=== PATIENT | female | born 1945 | race Caucasian/White ===

== ENCOUNTER 2024-02-25 07:20 | Inpatient (IN) | payer MEDICARE, OTHER ==
[~2024-02-25] VITALS: Ht 167.6 cm; Wt 102.8 kg
[2024-02-25] VITALS (7 sets, daily range): BP systolic 107–130; BP diastolic 57–64
[~2024-02-25 07:20] MED LIST: ADULT LOW DOSE81 MG PO; ALDACTONE100 MG PO; FUROSEMIDE20 MG PO; HYDROXYZINE HCL25 MG PO; METOPROLOL SUCC50 MG PO; OXYBUTYNIN CHLO15 MG PO; PRESERVISION A1 EAC3 PO; ROSUVASTATIN CA10 MG PO; VENTOLIN HFA18 GM INH; VITAMIN B121000 MCG PO
[2024-02-25 08:03] LABS: BASOPHILS 0.9 % (0-2); EOSINOPHILS 10.5 % (0-6); HEMATOCRIT 38.7 % (35.0-50.0); HEMOGLOBIN 12.7 g/dL (12.0-18.0); LYMPHOCYTES 14.5 % (24-44); MCH 29.3 (27-36); MCHC 32.9 g/dl (30-36); MCV 88.9 fl (81-99); MONOCYTES 10.4 % (0-12); NEUTROPHILS 63.7 % (39-80); PLATELET COUNT 227 K/uL (140-440); RBC 4.36 M/ul (4.3-5.7); RDW 14.2 (10.5-15.0)
[2024-02-25 08:11] LABS: BILIRUBIN, URINE NEGATIVE (negative); BLOOD/HGB, URINE NEGATIVE (Negative); KETONE, URINE NEGATIVE (Negative); LEUK ESTERASE, URINE SMALL (negative); NITRITE, URINE POSITIVE (negative)
[2024-02-25 08:14] LABS: ALBUMIN 3.2 g/dL (3.4-5.0); ALBUMIN/GLOBULIN RATIO 0.86 (1.1-2.4); ANION GAP 11.3 (7-21); BILIRUBIN, TOTAL 0.8 ng/dL (0.2-1.0); BUN/CREATININE RATIO 23.25 (6.0-28.6); CALCIUM 8.5 mg/dL (8.5-10.1); CREATININE, SERUM 1.29 mg/dL (0.55-1.02); POTASSIUM 4.3 mmol/L (3.5-5.1); PROTEIN, TOTAL 6.9 g/dL (6.4-8.2)
[2024-02-25 08:18] LABS: BACTERIA, URINE 3+ /hpf (negative); CASTS, URINE NONE SEEN \\lpf; COLLECTION TYPE, URINE CLEAN CATCH; CRYSTALS, URINE NONE SEEN (0-1+); RED BLOOD CELLS, URINE 0-1 /hpf (0-5); REFLEX CULTURE, URINE Yes (No); WHITE BLOOD CELLS, URINE 21-40 /HPF (0-5)
[2024-02-25] MEDS ORDERED: SODIUM CHLORIDE 0.9% 1,000 ML IV ONE (09:30)
[2024-02-25] MEDS ORDERED: CEFTRIAXONE/SODIUM CHLORIDE 1 GM/100 ML PIGGYBACK IV ONE (09:30)
[2024-02-25] MEDS ORDERED: HYDROCODON-ACE1 EA10 PO (10:44)
[2024-02-25] MEDS ORDERED: NITROGLYCERIN0.4 MG SL (10:44)
[2024-02-25] MEDS ORDERED: LOSARTAN POTASS25 MG PO (10:45)
[2024-02-25] MEDS ORDERED: SENNA8.6 MG PO (10:46)
[2024-02-25] MEDS ORDERED: HYDROmorphone HCL 1 MG/ML SYR IV ONE (11:00)
[2024-02-25] MEDS ORDERED: ENOXAPARIN SODIUM 40 MG/0.4 ML SYR SUB-Q SCH (12:43)
[2024-02-25] MEDS ORDERED: PANTOPRAZOLE SODIUM 40 MG/10 ML VIAL IV SCH (12:43)
[2024-02-25] MEDS ORDERED: ondansetron HCL 4 MG/2 ML VIAL IV PRN ×2 (12:45→14:30)
[2024-02-25] MEDS ORDERED: ACETAMINOPHEN 325 MG TAB PO PRN (12:45)
[2024-02-25] MEDS ORDERED: PROCHLORPERAZINE EDISYLATE 10 MG/2 ML VIAL IV PRN ×2 (12:45→14:30)
[2024-02-25] MEDS ORDERED: HYDROmorphone HCL 1 MG/ML SYR IV PRN ×2 (12:45→14:30)
[2024-02-25] MEDS ORDERED: HYDROCODONE/ACETA 5/325 TAB PO PRN (12:45)
[2024-02-25] MEDS ORDERED: ACETAMINOPHEN 650 MG SUPP PR PRN (12:45)
[2024-02-25] MEDS ORDERED: SPIRONOLACTONE50 MG PO (12:51)
--- NOTE | 2024-02-25 12:53 | NUR ---
CLEANER TOUCH UP WORKER ASSISTED PT WITH A SURGICAL WIPEDOWN. BED LINENS AND GOWN WERE STILL FRESH AND NOT EVEN AN HOUR OLD. PT TOOK OFF HER GLASS AND PUT THEM ON THE SIDE TABLE IN HER ROOM
--- NOTE | 2024-02-25 13:02 | NUR ---
New admit to the medical floor. Patient arrived to unit alert and oriented x4. Patient reports abdominal pain with intermittent nausea. Vital signs are stable, afebrile. Surgical consent obtained at this time with Dr. Jo present in room. Patient oriented to room and call light. Pt to go to surgery here shortly per Dr. Jo's report.
[2024-02-25] MEDS ORDERED: ROCURONIUM BROMIDE 50 MG/5 ML SYR ONE (13:04)
[2024-02-25] MEDS ORDERED: ACETAMINOPHEN 1,000 MG/100 ML VIAL ONE (13:04)
[2024-02-25] MEDS ORDERED: LIDOCAINE HCL 2% 20 MG/ML VIAL INJ ONE (13:04)
[2024-02-25] MEDS ORDERED: SUCCINYLCHOLINE IN 0.9% NACL 200 MG/10 ML SYRINGE ONE (13:04)
[2024-02-25] MEDS ORDERED: ondansetron HCL 4 MG/2 ML VIAL ONE (13:04)
[2024-02-25] MEDS ORDERED: fentaNYL citrate 100 MCG/2 ML VIAL ONE (13:04)
[2024-02-25] MEDS ORDERED: SUGAMMADEX SODIUM 200 MG/2 ML ML ONE (13:04)
[2024-02-25] MEDS ORDERED: LIDOCAINE HCL 2% 5 ML SDV ONE (13:04)
[2024-02-25] MEDS ORDERED: Ropivacaine HCl 0.5% 30 ML VIAL ONE (13:04)
[2024-02-25] MEDS ORDERED: propofoL 200 MG/20 ML VIAL ONE (13:04)
[2024-02-25] MEDS ORDERED: DEXAMETHASONE SOD PHOS 4 MG/ML VIAL ONE (13:04)
[2024-02-25] MEDS ORDERED: SODIUM CHLORIDE 0.9% 20 ML IV ONE (13:04)
[2024-02-25] MEDS ORDERED: LIDOCAINE 1% W/ EPI 1:200,000 30 ML SDV ONE (13:36)
[2024-02-25] MEDS ORDERED: BUPIVACAINE HCL 0.25% 50 ML MDV ONE (13:36)
[2024-02-25] MEDS ORDERED: NALOXONE HCL 0.4 MG SYR IV PRN (14:30)
[2024-02-25] MEDS ORDERED: droPERidol 5 MG/2 ML VIAL IV PRN (14:30)
[2024-02-25] MEDS ORDERED: fentaNYL citrate 50 MCG/ML SDV IV PRN (14:30)
[2024-02-25] MEDS ORDERED: IBLOOD GLUCOSE TEST STRIP 1 EA TEST VI PRN (14:30)
--- NOTE | 2024-02-25 15:34 | CONS ---
[facility] [address] [place], [place] [address] Signed DATE OF CONSULTATION: 02/25/2024 CHIEF COMPLAINT: Abdominal pain. HISTORY OF PRESENT ILLNESS: Priti is a 78-year-old female, who just flew back from [place] with her daughter about a day and half ago. She was noticing generalized abdominal pain and a bloating. She had some nausea. She came to emergency room for evaluation when she got back to [place], [place]. She is moderately diffusely distended and diffusely tympanitic. She has a mass in her right labia and right groin. White count was normal. Vital signs are unremarkable. She has urinary tract infection. CT scan of abdomen and pelvis shows her sigmoid colon in the right groin down toward the labia. I have been asked to see her as a general surgeon on-call. She has received her Rocephin and Flagyl. She tells me she will be seeing Dr. Littlejohn soon for her urinary incontinence. She also sees Dr. Frausto once a year after they discovered she had a heart murmur. PAST MEDICAL HISTORY: Urinary incontinence, moderate-sized hiatal hernia, cholelithiasis, tvxyqtwk-im-ippkqg pancreatic atrophy, a bladder diverticulum, osteopenia, bilateral hip osteoarthritis, bilateral lower extremity edema, obesity, hypertension, heart murmur, hypercholesterolemia, fibromyalgia, and COVID with resulting heart murmur and dyspnea on exertion. PAST SURGICAL HISTORY: Includes bilateral knee replacements, cervical fusion with bone graft, right carpal tunnel release and bilateral blepharoplasty. SOCIAL HISTORY: She does not smoke. She has a glass of wine each night. Dr. Sana Verma is her primary care provider. She prefers the [facility]. She has two daughters, one of which is Irma Phoenix at [phone], who is her [id number]. She is now a . Dr. Frausto is her line repairer. Dr. Russ Littlejohn will be her urologist in the weeks ahead. 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 FAMILY HISTORY: Dad had leukemia and heart valve issue. Mom had osteoarthritis. REVIEW OF SYSTEMS: She had 10 systems reviewed. She told me about the bilateral knee replacements. She said she probably had COVID a year or two ago and ended up with a heart murmur and some dyspnea on exertion resulting in her cardiac evaluation. Apparently, the cardiac evaluations been fine. She now goes once a year with the help of her diuretics, her Electronically Signed By: SKY CAMPBELL MD 02/25/24 1534 PATIENT NAME: PRITI VALLE CONSULTATION DATE OF : 43 REPORT #: [id number] PHYSICIAN: SKY CAMPBELL MD PCP: SANA VERMA MD REPORT IS CONFIDENTIAL AND NOT TO BE RELEASED WITHOUT AUTHORIZATION [facility] [address] [place], [place] [address] Signed lower extremity edema is markedly improved. She is also exercising on a daily basis. She told me she has urinary incontinence and will be seeing her urologist Dr. Littlejohn here in a few weeks. ALLERGIES: None. MEDICATIONS: Metoprolol, rosuvastatin, oxybutynin, Lasix, albuterol, spironolactone, aspirin, vitamin B12, hydroxyzine, [place], nitroglycerin, losartan, and senna. PHYSICAL EXAMINATION: VITAL SIGNS: Blood pressure is 131/79, heart rate 58, respiratory rate 22, temperature is 97.9. She is 96% on room air. She is 5 feet 6 inches, 103 kg with a body mass index of 36. GENERAL: Priti is a 78-year-old obese female, lying supine in her hospital bed. She is in no acute distress. LUNGS: Generally clear to auscultation bilaterally. HEART: Regular rate and rhythm and I cannot auscultate a murmur today. ABDOMEN: Obese, soft, but moderately distended and she has a tender mass in the right groin down into the right labia. It is not reducible. LABORATORY DATA: Her white blood cell count is 8.4, hemoglobin 12 neutrophils 63, BUN 30, creatinine 1.29. Urinalysis shows the nitrites, white blood cells and bacteria. The urine culture is pending. Liver function tests were fine. Albumin is 3.2. RADIOGRAPHIC STUDIES: CT scan report and images are reviewed. She has some mild right lower lobe bronchiectasis. Her sigmoid colon is in the right groin and down into the right labia. She has a thickened endometrium at 1.6 cm which is more than what she has had in the past and of course a pelvic ultrasounds been recommended. She also has some dilation at the left UPJ, which may represent a stricture. ASSESSMENT AND PLAN: Priti is a 78-year-old female who presents with an incarcerated tender right inguinal hernia containing her sigmoid colon. I reviewed the above findings with her. We have discussed the concept of inguinal hernia. We have reviewed an open primary suture repair versus mesh repair. She understands in the situations we may have to resect the bowel. There is risk including, but not limited to bleeding, infection, scarring, change in contour of the skin, damage to bowel, anastomotic leak, infection of mesh requiring removal, recurrent hernias and chronic pain. She understands this is not a simple hernia and she will be staying in the hospital as long as her clinical course dictates. She Electronically Signed By: SKY CAMPBELL MD 02/25/24 1534 PATIENT NAME: PRITI VALLE CONSULTATION DATE OF : 43 REPORT #: [id number] PHYSICIAN: SKY CAMPBELL MD PCP: SANA VERMA MD REPORT IS CONFIDENTIAL AND NOT TO BE RELEASED WITHOUT AUTHORIZATION [facility] [address] [place], [place] [address] Signed has expressed understanding, agrees above plan. We will be calling the crew shortly. MD POLLY Morales/KORIL /[id number] cc: MD Russ Wright MD Dr. Jamali Andrew L Bower, MD Copies: RUSS LITTLEJOHN MD, ANDREW L MD ~ Electronically Signed By: SKY CAMPBELL MD 02/25/24 1534 PATIENT NAME: PRITI VALLE CONSULTATION DATE OF : 43 REPORT #: [id number] PHYSICIAN: SKY CAMPBELL MD PCP: SANA VERMA MD REPORT IS CONFIDENTIAL AND NOT TO BE RELEASED WITHOUT AUTHORIZATION
--- NOTE | 2024-02-25 15:50 | NUR ---
02/25/24 1550 Sheets,Denise 1532 PT ARRIVED TO PACU ON 6L VIA MASK WITH ORAL AIRWAY IN PLACE. RESP EVEN AND UNLABORED BUT SHALLOW. 1533 PT REACTIVE TO TACTILE STIMULI AND ORAL AIRWAY REMOVED. PT DENIES PAIN AND NAUSEA AND IS REORIENTED TO PACU. 1536 O2 REMOVED AND DEEP BREATHING AND COUGHING ENCOUARGED, PT ABLE TO FOLLOW COMMANDS. 1541 O2 SAT 88%, DEEP BREATHING ENCOURAGED AND PT WAKES EAISLY TO VERBAL STIMULI. 2L NC PLACED AND O2 INCREASED TO LOW 90S. PT EASILY FALLS ASLEEP OFF AND ON.
[2024-02-25] MEDS ORDERED: DEXTROSE 5% - LACTATED RINGERS 1,000 ML IV SCH (16:00)
[2024-02-25] MEDS ORDERED: hydrOXYzine pamoate 25 MG CAP PO PRN (16:00)
[2024-02-25] MEDS ORDERED: ALBUTEROL SULFATE 0.042% 1.25 MG/3 ML VIAL INH PRN (16:00)
--- NOTE | 2024-02-25 16:38 | NUR ---
Patient back to the medical floor from surgery. Patient drowsy, opens eyes when spoken to, answers questions apprioriately. Patient reports her pain is tolerable at this time, 3 to RLQ incisions site. RLQ wound site is covered with dry gauze, not drainage. Patient denies nausea. Patient on 2L oxygen per nc, sp02 95% at this time. Patient's family at bedside. No needs at this time, Call light within reach.
--- NOTE | 2024-02-25 17:13 | NUR ---
Patient awake sitting up eating dinner, no distress. Vital signs remains stable. Patient continues to report her pain is tolerable. IV site remains patent. Dressing unchaned, CDI. Family remains at bedside. Call light within reach.
--- NOTE | 2024-02-25 19:10 | NUR ---
BEDSIDE REPORT RECEIVED FROM ANALISA RN, PT AWAKE AND ALERT, DENIES NEEDS AT THIS TIME, BED IN LOW POSITION, BED ALARM ON, IVF INFUSING WELL, VS COMPETED AND STABLE, RIGHT LOWER ABD DRESSING DRY AND INTACT, CPOX IN PLACE.
--- NOTE | 2024-02-25 19:52 | OR ---
[facility] [address] [place], [place] [address] Signed DATE OF OPERATION: 02/25/2024 SURGEON: Sky Campbell MD PREOPERATIVE DIAGNOSIS: Incarcerated right inguinal hernia. POSTOPERATIVE DIAGNOSIS: Incarcerated right inguinal hernia. PROCEDURES: Right Umair onlay mesh inguinal herniorrhaphy. ESTIMATED BLOOD LOSS: None. INDICATIONS: Priti is a 78-year-old obese female, who has had trouble with a right inguinal hernia on and off apparently for quite some time. She and her daughter were coming home from [place] on the airplane. She noticed a painful bulge in the right groin, but she could not reduce it. When [facility] she decided to come to the emergency room this morning. Her vital signs were fine. The mass was incarcerated and tender and down into the labia. The labs showed UTI. White count was normal. CT scan showed the sigmoid colon in the right groin. I am asked to see her with respect to the above as a local general surgeon on-call. She has received Rocephin and Flagyl along with her Lovenox. I met with Priti down in her hospital room. I reviewed with her the above findings. We discussed the idea of an inguinal hernia. We reviewed primary suture repair versus a mesh repair. There are cases where the bowel is ischemic and has to be resected. Hernia this large containing sigmoid colon is most likely through the inguinal canal, not the femoral canal. She understands the expected intraop and postop course. There is risk including, but not limited to bleeding, infection, scarring, change in contour of the skin, damage to bowel, anastomotic leak, damage to nerves, recurrent hernias and chronic pain. She had expressed understanding and wished to proceed. Later, both her daughters and granddaughter came and we reviewed this with them as well. PROCEDURE IN DETAIL: Priti was taken in the operating room and placed in the supine position. In our preop area she received a right inguinal block ultrasound guided by our nurse taxi dancer. Once in the room, she was placed under general endotracheal tube anesthesia. She was Electronically Signed By: SKY CAMPBELL MD 02/25/241951 PATIENT NAME: PRITI VALLE OPERATIVE REPORT DATE OF : 43 REPORT #: [id number] PHYSICIAN: SKY CAMPBELL MD PCP: GODFREY LIRA MD REPORT IS CONFIDENTIAL AND NOT TO BE RELEASED WITHOUT AUTHORIZATION [facility] [address] [place], [place] [address] Signed already on preoperative antibiotics along with subcutaneous Lovenox. SCDs were in place. Maurer catheter was inserted with return of clear yellow urine without difficulty. She was then prepped and draped in the usual sterile fashion. After this, I took just a minute and I could slowly but surely reduce the bowel. It took a minutes to get the area of the bowel and then the bowel reduced. It felt to me like it was above the inguinal ligament. After this, a standard oblique incision was made in the right groin and carried down through the tissue bluntly and with the cautery. We opened the external oblique along its length and developed medially and laterally. We had to sacrifice the ilioinguinal nerves and went past the external ring involving the right enlarged hernia sac. The hypogastric nerve was preserved. We took the ilioinguinal nerve back up above the deep ring to the level of the internal oblique and we tied it off with an 0 Vicryl suture. We also divided the round ligament just past the pubic tubercle with 0-Vicryl suture. We then reduced the entire hernia sac and round ligament through the deep ring. We imbricated the floor of the inguinal ligament with a running 2-0 PDS suture starting at the pubic tubercle all the way up to include the deep ring. There was too much tension to bring the conjoined tendon over the ilioinguinal ligament suture without a relaxing incision. We decided to go ahead and use a flat piece of Prolene mesh. An oval piece of Prolene mesh was cut to fit her groin and then held in place medially and laterally with running #1 Prolene suture. This covered the direct and indirect spaces quite nicely. The wound was then irrigated and suctioned out until clear. We closed the external oblique fascia over the repair with a running 2-0 PDS suture. Mor fascia was reapproximated with a running 3-0 Monocryl suture. The dermis was reapproximated with interrupted 3-0 subcuticular Monocryl sutures. The skin edges were reapproximated with a running 5-0 fast absorbing plain gut suture. Dry gauze and tape was then applied. After this, Priti was awakened from anesthesia, extubated in the OR, and taken to recovery room in stable condition. Sky Campbell MD ALB/MODL /[id number] cc: MD Russ Wright MD Electronically Signed By: SKY CAMPBELL MD 02/25/241951 PATIENT NAME: PRITI VALLE OPERATIVE REPORT DATE OF : 43 REPORT #: [id number] PHYSICIAN: SKY CAMPBELL MD PCP: GODFREY LIRA MD REPORT IS CONFIDENTIAL AND NOT TO BE RELEASED WITHOUT AUTHORIZATION [facility] [address] [place], [place] [address] Jett Morales Copies: RUSS LITTLEJOHN MD, ANDREW L MD ~ Electronically Signed By: SKY CAMPBELL MD 02/25/241951 PATIENT NAME: PRITI VALLE OPERATIVE REPORT DATE OF : 43 REPORT #: [id number] PHYSICIAN: SKY CAMPBELL MD PCP: GODFREY LIRA MD REPORT IS CONFIDENTIAL AND NOT TO BE RELEASED WITHOUT AUTHORIZATION
[2024-02-25] MEDS ORDERED: SENNOSIDES 1 TAB PO SCH (21:00)
[2024-02-25] MEDS ORDERED: oxyBUTYnin chloride 5 MG TAB PO SCH (21:00)
--- NOTE | 2024-02-25 21:45 | NUR ---
PT AWAKE AND ALERT, DAUGHTER RECENTLY CAME TO VISIT NOW GONE FOR THE NIGHT, PT DENIES PAIN, VS STABLE AFEBRILE, ASSESSMENT COMPLETED, INCISIONAL DRESSING DRY AND INTACT, PT UP TO ATTEMPT TO VOID, PT USED HER CANE WITH NURSE ASSIST, GAIT SLOW AND STEADY, PT UNABLE TO VOID, HS CARE PER PT AT SINK, BACK TO BED, RT MEDS GIVEN, OXYGEN PLACED ON AT 1L/NC WHILE RESTING, PT DRINKING WATER WELL.
--- NOTE | 2024-02-25 22:14 | EKG ---
[facility] [address] [facility] [place], [place] [address] Signed Sinus bradycardia Cannot rule out Anterior infarct , age undetermined Abnormal ECG When compared with ECG of 15-DEC-2023 10:51, No significant change was found Confirmed by EDITH ORTEZ MD ([id number]) on 02/25/2024 10:14:30 PM Electronically Signed By: EDITH ORTEZ 02/25/242213 PATIENT NAME: VALLELAMBERTO JUDE Electrocardiogram DATE OF : 43 PHYSICIAN: EDITH ORTEZ REPORT #: [id number] REPORT IS CONFIDENTIAL AND NOT TO BE RELEASED WITHOUT AUTHORIZATION
--- NOTE | 2024-02-25 23:32 | NUR ---
in room to bladder scan pt, bladder scan result of 341mls. primary rn musa made aware and updated. pt left resting in bed, on 1lnc as she was desating to 85%. cpox remains in room, spo2 and hr wnl. no further needs or concerns verbalized. call light in reach.
--- NOTE | 2024-02-26 00:01 | NUR ---
UPDATED DR CAMPBELL CONCERNING PT'S INABILITY TO VOID AND RESIDUAL OF 341ML, ORDERS RECEIVED TO PLACE REYNOLDS.
[2024-02-26] MEDS ORDERED: LIDOCAINE 2% VISCOUS 6 ML SYR TOP ONE (00:30)
--- NOTE | 2024-02-26 00:50 | NUR ---
RN TO ROOM TO DISCUSS NEED FOR REYNOLDS, PT STATES SHE WOULD LIKE TO GO TO BR TO VOID, PT ASSISTED UP, GAIT SLOW BUT STEADY, PT USING A CANE, PT VOIDED 100ML YELLOW URINE IN MEASURING HAT, BUT ALSO VOIDED IN THE TOILET, PLAN TO HOLD PLACEMENT OF REYNOLDS AT THIS TIME AND MONITOR U/O.
[2024-02-26 01:00] VITALS: BP 126/64
--- NOTE | 2024-02-26 01:00 | NUR ---
PT BACK TO BED, REQUESTING 2 NORCO FOR INCISIONAL PAIN 5/10, MEDICATED PER ORDER, PT ATE APPLESAUCE AT THIS TIME, VS DONE AND STABLE, FRESH WATER GIVEN, OXYGEN ON AT 1L/NC, CPOX IN PLACE, SCDS REPLACED, ABD DRESSING DRY AND INTACT, ICE BAG TO SITE.
[2024-02-26 01:44] VITALS: BP 126/64
--- NOTE | 2024-02-26 02:20 | NUR ---
PT AWAKE, REQUESTIN ASSIST WITH OPENING JUICE, PT TOLERATING FLUIDS WELL WITHOUT N/V, PT STATES NO FURTHER PAIN, IVF INFUSING WELL.
--- NOTE | 2024-02-26 04:20 | NUR ---
PT APPEARS TO SLEEP, RESP EVEN AND REG, SATS 92% ON 2L/NC.
[2024-02-26 05:33] LABS: BASOPHILS 0.1 % (0-2); HEMATOCRIT 37.3 % (35.0-50.0); LYMPHOCYTES 5.2 % (24-44); MCHC 32.1 g/dl (30-36); MCV 90.3 fl (81-99); MONOCYTES 5.6 % (0-12); NEUTROPHILS 89.1 % (39-80); PLATELET COUNT 199 K/uL (140-440); RBC 4.13 M/ul (4.3-5.7); RDW 14.2 (10.5-15.0)
[2024-02-26 05:42] LABS: ANION GAP 11.2 (7-21); BUN/CREATININE RATIO 18.79 (6.0-28.6); CALCIUM 8.3 mg/dL (8.5-10.1); CREATININE, SERUM 1.33 mg/dL (0.55-1.02); MAGNESIUM 2.3 mg/dL (1.8-2.4); PHOSPHORUS, INORGANIC 3.7 mg/dL (2.5-4.9); POTASSIUM 5.2 mmol/L (3.5-5.1)
[2024-02-26 06:05] VITALS: BP 130/53
--- NOTE | 2024-02-26 06:05 | NUR ---
PT AWAKE AND ALERT, UP TO BR TO VOID WITH 1PA AND USE OF CANE, GAIT SLOW BUT STEADY, PT PREFERS TO DO SELF CARE, VOIDED AND INCONTIENT IN ATTENDS, BACK TO BED, VS STABLE, PT DENIES NEED FOR PAIN MED, PT BACK TO BED, IVF INFUSING WELL, SITE INTACT, ABD DRESSING DRY AND INTACT, SCDS REMAIN ON, OXYGEN CONTS AT 1L/NC SINCE PT PREPARING TO SLEEP.
--- NOTE | 2024-02-26 07:13 | NUR ---
Pt report received from ALYSON Mensah.
--- NOTE | 2024-02-26 07:53 | NUR ---
Dr. Jo in with pt. Pt is A&O, supine in bed, television on and pt's daughter at bedside. Pt is still on 1LPM O2 via NC, this was turned off and NC removed. Pt's room air sats are at 97%. Pt requests oatmeal with brown sugar for breakfast and Dr. Jo is inputting orders to advance pt's diet as tolerated. Side rails up x4, call light in reach, pt denies further needs at this time. Dr. Jo removed dressing to pt's lower abdomen. Incision is clean and intact, no drainage noted. Some blood noted on dressing.
--- NOTE | 2024-02-26 08:00 | NUR ---
PT RESTING IN BED EYES OPEN AND AWAKE. PT REQUESTED HOT CHOCOLATE WITH CREAMER, ANESTHESIOLOGY FACULTY GOT IT FOR HER NO FURTHER COMPLAINTS FAMILY IN THE ROOM
--- NOTE | 2024-02-26 08:55 | DS ---
[facility] [address] [place], [place] [address] Signed ADMISSION DATE: 02/25/2024 DISCHARGE DATE: 02/26/2024 FINAL DIAGNOSES: 1. Incarcerated right inguinal hernia containing sigmoid colon. 2. 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 3. Increased endometrial, uterine stripe on CT scan of abdomen and pelvis. 4. Hyperkalemia with renal dysfunction. PROCEDURES: 1. Repair of right inguinal hernia with onlay mesh. 2. CT scan of abdomen and pelvis. HISTORY OF PRESENT ILLNESS: Priti is a 78-year-old female, who has been having trouble with a right inguinal hernia apparently for a quite some time according the family. They just flew back from [place] from vacation. She felt the bulging in her right groin all the way down into the labia. Normally it can reduce. On this occasion, it was not reducible and it was causing her pain. She finally decided to come to the emergency room. HOSPITAL COURSE: Priti was seen and evaluated in the emergency room for the pain and a mass in the right groin. White count was normal. The urinalysis was positive for a urinary tract infection. The urine culture from 02/25/[address] scan showed her sigmoid colon in the right groin down into the labia. Also, her endometrial stripe is increased in thickness up to 1.6 cm, although she denies vaginal bleeding. Of course, her pelvic ultrasound has been recommended as an outpatient. There also appears to be a benign stricture at the UPJ and the urinary bladder diverticulum. She is having trouble with urinary incontinence and she is already scheduled to see Dr. Yuli Stewart as an outpatient in the weeks ahead. She also told me her potassium is running high, so Dr. Verma had reduced her spironolactone in half. I have been asked to see her as a general surgeon on-call. We took her to the operating room yesterday after the Rocephin and Flagyl. We were able to reduce the sigmoid colon. Once she was pharmacologically paralyzed and intubated. We performed a standard Umair right inguinal herniorrhaphy with onlay mesh for an indirect inguinal hernia. She has done well both intraop and postop. She looks and feels much better this morning. Her daughter is with her. She is anxious to go home. Her incision is healing well and no issues in that regard. The abdomen is completely benign, but obese. DISCHARGE PLANS AND MEDICATIONS: Electronically Signed By: SKY CAMPBELL MD 02/26/24 0855 PATIENT NAME: PRITI VALLE DISCHARGE SUMMARY DATE OF : 43 REPORT #: [id number] PHYSICIAN: SKY CAMPBELL MD PCP: SANA VERMA MD REPORT IS CONFIDENTIAL AND NOT TO BE RELEASED WITHOUT AUTHORIZATION [address] [address] Signed Priti is going to be discharged home with a prescription for Bactrim DS one p.o. b.i.d. for five days. She will need followup of that year urine culture with her primary care provider. She is also scheduled to see our urologist Dr. 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 We are going to give her Hardin 10/325 mg 1 tablet p.o. q.6 hours p.r.n. for severe postoperative pain. We will dispense 15 tablets with no refills. Otherwise, she can use Tylenol. She should probably avoid NSAIDs due to her renal dysfunction. She can always use some Dulcolax and MiraLAX as needed for constipation. She also has some senna at home. We are going to let her resume all her chronic medications at discharge including aspirin. In addition, because of the increased thickness of her endometrial stripe up to 1.[address] the CT scan, she will follow up with Dr. Sydnee Mederos in the weeks ahead for her Branch Service Representative followup. She needs to consider outpatient pelvic ultrasound. She is going to follow her usual diet at home. She can perform her activities of daily living including walking up and down stairs and showering and bathing as usual. She should not do any heavy pushing, pulling, lifting over about 10 pounds. I will see her back in my office in about 7 to 14 days for her surgical followup for the right inguinal hernia repair. I have reviewed this with Priti and her daughter now, yesterday, and today. They have expressed understanding and agreed with the above plan. Sky Campbell MD ALB/MODL /[id number] cc: Patient Chart MD Sana Gonzales MD Andrew L Bower, MD Aimee Rogers, MD Patricia J Winn, MD Electronically Signed By: SKY CAMPBELL MD 02/26/24 0855 PATIENT NAME: PRITI VALLE DISCHARGE SUMMARY DATE OF : 43 REPORT #: [id number] PHYSICIAN: SKY CAMPBELL MD PCP: SANA VERMA MD REPORT IS CONFIDENTIAL AND NOT TO BE RELEASED WITHOUT AUTHORIZATION [facility] [address] [place], [place] [address] Signed Copies: ALEXSANDRA STERLING MD, ANDREW L MD ROGERS, AIMEE MD WINN, PATRICIA J MD ~ Electronically Signed By: SKY CAMPBELL MD 02/26/24 0855 PATIENT NAME: PRITI VALLE DISCHARGE SUMMARY DATE OF : 43 REPORT #: [id number] PHYSICIAN: SKY CAMPBELL MD PCP: SANA VERMA MD REPORT IS CONFIDENTIAL AND NOT TO BE RELEASED WITHOUT AUTHORIZATION
[2024-02-26] MEDS ORDERED: SPIRONOLACTONE 25 MG TAB PO SCH (09:00)
[2024-02-26] MEDS ORDERED: FUROSEMIDE 20 MG TAB PO SCH (09:00)
[2024-02-26] MEDS ORDERED: TRIMETHOPRIM/SULFAMETHOXAZOLE 1 EA TAB PO SCH (09:00)
[2024-02-26] MEDS ORDERED: CEFTRIAXONE/SODIUM CHLORIDE 2 GM/100 ML PIGGYBACK IV SCH (09:00)
[2024-02-26] MEDS ORDERED: METOPROLOL SUCCINATE 50 MG TABCR PO SCH (09:00)
[2024-02-26] MEDS ORDERED: LOSARTAN POTASSIUM 25 MG TAB PO SCH (09:00)
[2024-02-26] MEDS ORDERED: SPIRONOLACTONE 100 MG TAB PO SCH (09:00)
[2024-02-26] MEDS ORDERED: PANTOPRAZOLE SODIUM 40 MG TABEC PO SCH (09:00)
[2024-02-26 09:15] VITALS: BP 131/51
--- NOTE | 2024-02-26 09:15 | NUR ---
Respond to call light. Pt up to void, SBA only. IV s/l while she toilets. Linen change performed while she was in the bathroom. Pt ambulates with cane and appears to be steady, no dizziness, no lightheadedness, no nausea/vomiting, she reports a "zing" in her surgical site only when she initially stood up, but it eased as she ambulated. Pt stated she was able to tolerate eating oatmeal with brown sugar. Pillow case placed under pannus to reduce redness and moisture buildup at the incision site. Incision is CDI, redness noted under pannus lateral to the end of the incision but pt does not complain of discomfort. Side rails up x2, call light in reach. CPOX on, pt is on room air. Pt's daughter in room
[2024-02-26 09:20] VITALS: BP 131/51
[2024-02-26] MEDS ORDERED: BACTRIM DS TAB1 EACH PO (09:24)
[2024-02-26] MEDS ORDERED: HYDROCODON-ACE1 EAC8 PO (09:25)
[2024-02-26] MEDS ORDERED: MIRALAX17 GM PO (09:26)
[2024-02-26] MEDS ORDERED: GENTLE LAXATIVE5 M1 PO (09:32)
[2024-02-26] MEDS ORDERED: FUROSEMIDE40 MG PO (09:49)
--- NOTE | 2024-02-26 10:41 | NUR ---
PT AMBULATED THE HALLWAY X1 LAP, SBA ONLY. TOLERATED WELL. BACK TO BED. PAIN LEVEL 6 OUT OF 10. PAIN MED PROVIDED PER EMAR. WILL SHOWER IN ABOUT ONE HOUR. CALL LIGHT IN REACH, SCD'S ON, SIDE RAILS UP, CALL LIGHT IN REACH, IVF INFUSING PER ORDER.
--- NOTE | 2024-02-26 10:53 | NUR ---
While in with pt for pain med administration per emar for pain 6 out of 10 in her groin, pt states she normally takes 2 norco when she takes them because it takes two before she feels pain relief. Pt was willing to take one norco at this time and will reassess after 30-45 minutes before she showers.
--- NOTE | 2024-02-26 12:16 | NUR ---
medications reconciled with pharmacy records and Dr Verma PCP progress notes
--- NOTE | 2024-02-26 12:20 | NUR ---
PT GOT HERSELF BACK INTO BED AFTER HER SHOWER. PT DENIES ANY ISSUES WHILE SHOWERING AND STATES SHE FEELS MUCH BETTER BUT WORN OUT. PT IS NOW SITTING AT THE EDGE OF THE BED FOR LUNCH AND HER DAUGHTER IS WITH HER. WATER REFILLED, CALL LIGHT IN REACH.
[2024-02-26 13:28] VITALS: BP 101/45
--- NOTE | 2024-02-26 13:46 | NUR ---
PC to Dr. Jo's cell phone. Left message requesting he return my call for an update on pt's condition prior [email or web address] discharge.
== END 2024-02-26 14:30 | disposition home or self-care (01) | DRG 351 ==
LOC: ED 07:20 → MS 11:10
PROVIDERS: Emergency Medicine; ADMIT Colon & Rectal Surgery; ATTEND Colon & Rectal Surgery
PROC: 0YU50JZ Supplement Right Inguinal Region with Synthetic Substitute, Open Approach (ICD-10-PCS; principal; 2024-02-25 13:21)
DX: K40.40 Unilateral inguinal hernia, with gangrene, not specified as recurrent (principal); N39.0 Urinary tract infection, site not specified; E87.5 Hyperkalemia; N32.3 Diverticulum of bladder; E66.9 Obesity, unspecified; M16.0 Bilateral primary osteoarthritis of hip; I10 Essential (primary) hypertension; E78.00 Pure hypercholesterolemia, unspecified; Z86.16 Personal history of COVID-19; M79.7 Fibromyalgia; Z96.653 Presence of artificial knee joint, bilateral; Z98.1 Arthrodesis status; Z98.890 Other specified postprocedural states; Z79.899 Other long term (current) drug therapy; Z79.82 Long term (current) use of aspirin; Z68.36 Body mass index [BMI] 36.0-36.9, adult
CPT/HCPCS: 36415; 74177; 80048; 80053; 81001; 83690; 83735; 84100; 85025; 93005; 93010; 94762; A9270; C9113; J0131; J0330; J0696; J1100; J1170; J1650; J2001; J2405; J2704; J2795; J3010; J3490; J7030; J7121; Q9967